=== PATIENT | male | born 1990 | race Caucasian/White ===

== ENCOUNTER 2022-04-20 01:05 | Emergency (ER) | payer OTHER ==
[~2022-04-20] VITALS: Ht 177.8 cm; Wt 81.7 kg
== END 2022-04-20 02:52 | disposition home or self-care (01) ==
LOC: ER 01:05
DX: K40.90 Unilateral inguinal hernia, without obstruction or gangrene, not specified as recurrent (principal)
CPT/HCPCS: 99282